=== PATIENT | male | born 1940 | race Caucasian/White ===

== ENCOUNTER 2022-05-20 14:46 | Inpatient (IN) | payer MEDICARE, MEDICAID ==
[2022-05-20] MEDS ORDERED: Sodium Chloride 0.9% 10 ML Syringe FLUSH PRN (15:32)
[2022-05-20] MEDS ORDERED: Sodium Chloride 0.9% 1,000 ML IV SCH (15:45)
[2022-05-20 16:39] LABS: CORONAVIRUS COVID-19 NAA NEGATIVE (NEGATIVE)
[2022-05-20] MEDS ORDERED: Lactated Ringers 1,000 ML IV ONE (17:27)
[2022-05-20] MEDS ORDERED: Heparin Sodium 5,000 Units/ML Vial SUBCUT SCH (18:00)
[2022-05-20] MEDS ORDERED: Morphine 2 MG/ML SYRINGE IVPUSH PRN (18:02)
[2022-05-20] MEDS ORDERED: Acetaminophen 325 MG Tab PO PRN (18:02)
[2022-05-20] MEDS ORDERED: Ondansetron 4 MG Tab.DIS PO PRN (18:02)
[2022-05-20] MEDS ORDERED: oxyCODONE 5 MG Tab PO PRN (18:02)
[2022-05-20] MEDS: Insulin Regular, Human 100 Units/ML 3 ML Vial SUBCUT SCH (20:27)
[2022-05-20] MEDS: Heparin Sodium 5,000 Units/ML Vial SUBCUT SCH (21:58)
[2022-05-20] MEDS: Donepezil 10 MG Tab PO SCH (22:30)
[2022-05-21] MEDS ORDERED: Sodium Chloride 0.9% 500 ML IV ONE (01:23)
[2022-05-21] MEDS: Heparin Sodium 5,000 Units/ML Vial SUBCUT SCH ×3 (05:52→21:08)
[2022-05-21] MEDS: Levothyroxine 100 MCG Tab PO SCH (05:52)
[2022-05-21] MEDS: Allopurinol 300 MG Tab PO SCH (08:36)
[2022-05-21] MEDS: Empagliflozin 25 MG Tab PO SCH (08:36)
[2022-05-21] MEDS: lamoTRIgine 100 MG Tab PO SCH (08:37)
[2022-05-21] MEDS: Insulin Regular, Human 100 Units/ML 3 ML Vial SUBCUT SCH ×3 (08:48→18:04)
[2022-05-21] MEDS ORDERED: Donepezil 10 MG Tab PO SCH (09:00)
[2022-05-21] MEDS: Donepezil 10 MG Tab PO SCH (21:08)
[2022-05-22] MEDS: Levothyroxine 100 MCG Tab PO SCH (06:13)
[2022-05-22] MEDS: Heparin Sodium 5,000 Units/ML Vial SUBCUT SCH ×3 (06:13→21:17)
[2022-05-22] MEDS: Insulin Regular, Human 100 Units/ML 3 ML Vial SUBCUT SCH ×3 (08:13→19:31)
[2022-05-22] MEDS: Allopurinol 300 MG Tab PO SCH (09:19)
[2022-05-22] MEDS: Empagliflozin 25 MG Tab PO SCH (09:20)
[2022-05-22] MEDS: lamoTRIgine 100 MG Tab PO SCH (09:20)
[2022-05-22] MEDS: Donepezil 10 MG Tab PO SCH (20:15)
[2022-05-23] MEDS: Levothyroxine 75 MCG Tab PO SCH (05:09)
[2022-05-23] MEDS: Heparin Sodium 5,000 Units/ML Vial SUBCUT SCH ×3 (05:09→21:03)
[2022-05-23] MEDS: Insulin Regular, Human 100 Units/ML 3 ML Vial SUBCUT SCH ×3 (08:06→18:28)
[2022-05-23] MEDS: lamoTRIgine 100 MG Tab PO SCH (08:06)
[2022-05-23] MEDS: Allopurinol 300 MG Tab PO SCH (08:06)
[2022-05-23] MEDS: Donepezil 10 MG Tab PO SCH (21:03)
[2022-05-24] MEDS: Heparin Sodium 5,000 Units/ML Vial SUBCUT SCH ×3 (05:19→21:05)
[2022-05-24] MEDS: Levothyroxine 75 MCG Tab PO SCH (05:19)
[2022-05-24] MEDS: lamoTRIgine 100 MG Tab PO SCH (09:21)
[2022-05-24] MEDS: Allopurinol 300 MG Tab PO SCH (11:01)
[2022-05-24] MEDS: Insulin Regular, Human 100 Units/ML 3 ML Vial SUBCUT SCH ×3 (11:03→18:42)
[2022-05-24] MEDS: Donepezil 10 MG Tab PO SCH (20:53)
[2022-05-25] MEDS: Levothyroxine 75 MCG Tab PO SCH (05:37)
[2022-05-25] MEDS: Heparin Sodium 5,000 Units/ML Vial SUBCUT SCH ×3 (05:39→21:28)
[2022-05-25] MEDS: lamoTRIgine 100 MG Tab PO SCH (08:44)
[2022-05-25] MEDS: Allopurinol 300 MG Tab PO SCH (08:44)
[2022-05-25] MEDS ORDERED: Docusate Sodium 100 MG Cap PO PRN (09:06)
[2022-05-25] MEDS: Insulin Regular, Human 100 Units/ML 3 ML Vial SUBCUT SCH ×3 (09:37→18:46)
[2022-05-25] MEDS: Donepezil 10 MG Tab PO SCH (20:04)
[2022-05-26] MEDS: Heparin Sodium 5,000 Units/ML Vial SUBCUT SCH ×3 (04:59→21:04)
[2022-05-26] MEDS: Levothyroxine 75 MCG Tab PO SCH (05:00)
[2022-05-26] MEDS: lamoTRIgine 100 MG Tab PO SCH (08:47)
[2022-05-26] MEDS: Allopurinol 300 MG Tab PO SCH (08:48)
[2022-05-26] MEDS: Insulin Regular, Human 100 Units/ML 3 ML Vial SUBCUT SCH ×3 (08:51→18:17)
[2022-05-26] MEDS: Donepezil 10 MG Tab PO SCH (21:04)
[2022-05-27] MEDS: Levothyroxine 75 MCG Tab PO SCH (05:29)
[2022-05-27] MEDS: Heparin Sodium 5,000 Units/ML Vial SUBCUT SCH (05:29)
[2022-05-27] MEDS: lamoTRIgine 100 MG Tab PO SCH (08:29)
[2022-05-27] MEDS: Allopurinol 300 MG Tab PO SCH (08:29)
[2022-05-27] MEDS: Insulin Regular, Human 100 Units/ML 3 ML Vial SUBCUT SCH (08:30)
== END 2022-05-27 11:15 | disposition home or self-care (01) | DRG 312 ==
LOC: JD.ED 14:46 → JD.MS 18:02
PROVIDERS: ADMIT Internal Medicine; ATTEND Pediatrics
DX: I95.2 Hypotension due to drugs (principal); N18.4 Chronic kidney disease, stage 4 (severe); R00.1 Bradycardia, unspecified; I95.9 Hypotension, unspecified; N28.9 Disorder of kidney and ureter, unspecified; E11.22 Type 2 diabetes mellitus with diabetic chronic kidney disease; I12.9 Hypertensive chronic kidney disease with stage 1 through stage 4 chronic kidney disease, or unspecified chronic kidney disease; E11.65 Type 2 diabetes mellitus with hyperglycemia; R53.1 Weakness; I25.10 Atherosclerotic heart disease of native coronary artery without angina pectoris; R63.4 Abnormal weight loss; F02.B0 Dementia in other diseases classified elsewhere, moderate, without behavioral disturbance, psychotic disturbance, mood disturbance, and anxiety; Z68.21 Body mass index [BMI] 21.0-21.9, adult; Z79.890 Hormone replacement therapy; Z20.822 Contact with and (suspected) exposure to COVID-19; Z79.4 Long term (current) use of insulin; Z95.5 Presence of coronary angioplasty implant and graft; Z91.02 Food additives allergy status; T46.5X5A Adverse effect of other antihypertensive drugs, initial encounter; Y92.89 Other specified places as the place of occurrence of the external cause; I10 Essential (primary) hypertension; E03.9 Hypothyroidism, unspecified; G30.9 Alzheimer's disease, unspecified; F02.80 Dementia in other diseases classified elsewhere, unspecified severity, without behavioral disturbance, psychotic disturbance, mood disturbance, and anxiety; Z79.84 Long term (current) use of oral hypoglycemic drugs; Z79.899 Other long term (current) drug therapy
CPT/HCPCS: 0241U; 36415; 71045; 80048; 80053; 81001; 82947; 83735; 84443; 84484; 85025; 93005; 93307; 96360; 96361; 97110; 97112; 97116; 97162; 97530; 99285; 93010; A9270-GY; J1644; J1815-GY; J3490; J7030; J7120; U0002